=== PATIENT | male | born 1970 | race Caucasian/White ===

== ENCOUNTER → 2016-06-23 | Outpatient (CLI) | payer OTHER ==
[~2016-06-23] VITALS: Ht 193 cm; Wt 199.6 kg
[~2016-06-23] MED LIST: JANUMET XR 1001 EACH PO; NEO-POLYMYXIN-H10 ML LEFT EAR; PERCOCET 5/31 TABLET PO; VICTOZA 2-0.6 MG/0.1 SC
[2016-06-23 13:12] LABS: ANION GAP 10 MEQ/L (2-14); CHLORIDE 102 MEQ/L (99-109); SAMPLE HEMOLYSIS CHECK 0; SAMPLE ICTERIC CHECK 0; SAMPLE LIPEMIA CHECK 0; SODIUM 138 MEQ/L (136-147)
[2016-06-23 13:12] LABS: POINT-OF-CARE METER ID UU13113694
[2016-06-23 13:17] LABS: GFR ESTIMATE (CALCULATED) > 59 mL/min/; GLUCOSE 234 mg/dL (70-99); UREA NITROGEN (BUN) 14 mg/dL (9-23)
== END | disposition home or self-care (01) ==
LOC: AMB 11:28
PROVIDERS: Anesthesiology; Surgery
PROC: 0DJ08ZZ Inspection of Upper Intestinal Tract, Via Natural or Artificial Opening Endoscopic (ICD-10-PCS; principal; 2016-06-23)
DX: K21.9 Gastro-esophageal reflux disease without esophagitis (principal); K29.70 Gastritis, unspecified, without bleeding; E66.01 Morbid (severe) obesity due to excess calories; Z68.43 Body mass index [BMI] 50.0-59.9, adult; E11.9 Type 2 diabetes mellitus without complications; M19.90 Unspecified osteoarthritis, unspecified site; Z79.84 Long term (current) use of oral hypoglycemic drugs; Z88.0 Allergy status to penicillin; Z88.8 Allergy status to other drugs, medicaments and biological substances
CPT/HCPCS: 80048; 82948; B4087; J2250

== ENCOUNTER 2016-07-15 06:14 | Inpatient (IN) | payer OTHER ==
[~2016-07-15] VITALS: Ht 190.5 cm; Wt 85.7 kg
[~2016-07-15 06:14] MED LIST changes: +FLINTSTONES1 EACH PO; +GABAPENTIN600 MG PO; +RANITIDINE HCL150 M1 PO; +TRAMADOL HCL50 MG PO
[2016-07-15 06:40] VITALS: BP 150/98
[2016-07-15 07:22] LABS: POINT-OF-CARE METER ID UU14174212
[2016-07-15 08:42] LABS: METH RESISTANT S AUREUS PCR NEGATIVE (NEGATIVE)
[2016-07-15 08:44] LABS: PROBE CHECK PASS; SPECIMEN PROCESSING CONTROL PASS
[2016-07-15 11:00] LABS: POINT-OF-CARE METER ID UU13113675
[2016-07-15 13:10] VITALS: BP 135/78
[2016-07-15 15:45] VITALS: BP 141/79
[2016-07-15 19:50] VITALS: BP 107/66
[2016-07-15 23:31] VITALS: BP 150/79
[2016-07-16 03:41] VITALS: BP 121/57
[2016-07-16 07:08] LABS: HEMATOCRIT 44.2 % (38.0-50.0); MCH 31.6 PG (29.0-34.0); MCHC 34.8 G/DL (30.0-36.0); MCV 90.8 FL (86-99); MEAN PLAT.VOLUME 10.3 uM^3 (9.0-12.4); RBC DIS.WIDTH-CV 12.9 % (11.8-14.6); RED BLOOD COUNT 4.87 M/uL (4.00-5.50); WHITE BLOOD COUNT 5.8 K/uL (4.1-10.2)
[2016-07-16 07:11] LABS: PLATELET COUNT 138 K/uL (156-360)
[2016-07-16 07:35] LABS: ANION GAP 8 MEQ/L (2-14); CHLORIDE 106 MEQ/L (99-109); GFR ESTIMATE (CALCULATED) > 59 mL/min/; GLUCOSE 164 mg/dL (70-99); MAGNESIUM 1.9 mg/dl (1.3-2.7); POTASSIUM 4.2 MEQ/L (3.7-5.4); SAMPLE HEMOLYSIS CHECK 0; SAMPLE ICTERIC CHECK 0; SAMPLE LIPEMIA CHECK 0; SODIUM 139 MEQ/L (136-147); UREA NITROGEN (BUN) 9 mg/dL (9-23)
[2016-07-16 07:42] VITALS: BP 136/64
[2016-07-16] MEDS ORDERED: HYDROCODON-ACE1 EAC7 PO (08:32)
== END 2016-07-16 09:46 | disposition home or self-care (01) | DRG 621 ==
LOC: 2EAST 06:14 → 2SOUTH 06:14 → 2EAST 13:03
PROVIDERS: Surgery
PROC: 0DB68Z3 Excision of Stomach, Via Natural or Artificial Opening Endoscopic, Vertical (ICD-10-PCS; principal; 2016-07-15)
DX: E66.01 Morbid (severe) obesity due to excess calories (principal); Z68.43 Body mass index [BMI] 50.0-59.9, adult; I10 Essential (primary) hypertension; E11.9 Type 2 diabetes mellitus without complications; K21.9 Gastro-esophageal reflux disease without esophagitis; F41.9 Anxiety disorder, unspecified; M19.90 Unspecified osteoarthritis, unspecified site; Z88.0 Allergy status to penicillin; Z90.49 Acquired absence of other specified parts of digestive tract
CPT/HCPCS: 80048; 82948; 83735; 84100; 85027; 87641; 94799; C9113; J0330; J1170; J1580; J1644; J1650; J1815; J2250; J2270; J2405; J2550; J2710; J2765; J3010; J3480; J7050; J7120; S0020

== ENCOUNTER 2017-03-03 20:19 | Emergency (ER) | payer OTHER ==
[~2017-03-03] VITALS: Ht 193 cm; Wt 146.5 kg
[~2017-03-03 20:19] MED LIST changes: +HYDROCODON-ACE1 EAC7 PO
[2017-03-03 21:13] LABS: CHLORIDE 106 mEq/L (99-109); POTASSIUM 4.5 mEq/L (3.7-5.4); SODIUM 142 mEq/L (136-147)
[2017-03-03 21:15] LABS: GLUCOSE 86 mg/dL (70-99)
[2017-03-03 21:16] LABS: ANION GAP 11 MEQ/L (2-14)
[2017-03-03 21:19] LABS: GFR ESTIMATE (CALCULATED) > 59 mL/min/; UREA NITROGEN (BUN) 16 mg/dL (9-23)
[2017-03-03 21:24] LABS: TROP-I INTERPRETATION NEGATIVE; TROPONIN-I < 0.01 ng/mL (0.0-0.30)
[2017-03-03 22:07] LABS: EOSINOPHIL (%) 2.1 % (0-5); EOSINOPHIL COUNT 0.1 K/uL (0-0.3); HEMATOCRIT 47.9 % (38.0-50.0); IMMATURE GRANULOCYTE (%) 0.2 % (0.0-0.7); INSTRUMENT ABS NEUTROPHIL CT 3.1 K/uL; MCHC 33.8 G/DL (30.0-36.0); MCV 91.6 FL (86-99); MEAN PLAT.VOLUME 9.5 uM^3 (9.0-12.4); MONOCYTE (%) 5.9 % (3-12); MONOCYTE COUNT 0.4 K/uL (0-0.8); NEUTROPHIL COUNT 3.1 K/uL (1.8-6.4); PLATELET COUNT 183 K/uL (156-360); RBC DIS.WIDTH-CV 12.3 % (11.8-14.6); RBC DIS.WIDTH-SD 41.1 % (39-53); RED BLOOD COUNT 5.23 M/uL (4.00-5.50); WHITE BLOOD COUNT 6.6 K/uL (4.1-10.2)
[2017-03-03 23:41] LABS: TROP-I INTERPRETATION NEGATIVE; TROPONIN-I < 0.01 ng/mL (0.0-0.30)
[2017-03-04 01:05] LABS: TROP-I INTERPRETATION NEGATIVE; TROPONIN-I < 0.01 ng/mL (0.0-0.30)
[2017-03-04 01:42] VITALS: BP 117/66
[2017-03-04 12:16] LABS: Estimated Average Glucose 105 mg/dL (70-123); HEMOGLOBIN A1c (GLYCOHEMOGLOB) 5.3 % HGB (Below 5.7)
== END 2017-03-04 01:42 | disposition home or self-care (01) ==
LOC: EME 20:19
PROVIDERS: Emergency Medicine
DX: R07.9 Chest pain, unspecified (principal); R55 Syncope and collapse; I10 Essential (primary) hypertension; E11.9 Type 2 diabetes mellitus without complications; Z79.84 Long term (current) use of oral hypoglycemic drugs; Z98.84 Bariatric surgery status; Z87.442 Personal history of urinary calculi; Z88.0 Allergy status to penicillin; Z88.6 Allergy status to analgesic agent
CPT/HCPCS: 71020; 80048; 83036; 83880; 84439; 84443; 84484; 85025 GA; 85027; 85027 GA; 93005; 99281; 99285